=== PATIENT | female | born 1950 | race African-American/Black ===

== ENCOUNTER 2016-05-06 17:22 | Emergency (ER) | payer MEDICARE, MEDICAID ==
[~2016-05-06] VITALS: Ht 167.6 cm; Wt 70.0 kg
[~2016-05-06 17:22] MED LIST: ABAC1TAB3 PO; ATOR40TA PO; BUDE100T PO; CALCTAB70 PO; CLON.1 PO; ENAL10TA7 PO; HYDR-2768 PO; SERO300T PO; SIME1CHW10 CHEW
[2016-05-06 17:25] VITALS: BP 185/98; PULSE 88; RESP 16; TEMP 97.8; O2SAT 98
[2016-05-06 17:47] LABS: BLOOD, URINE NEG (NEG); COMMENT (UR) CULT NOT INDICATED; CULTURE IF INDICATED CULT NOT INDICATED; GLUCOSE,URINE NEG (NEG); KETONE, URINE TRACE mg/dL (NEG); NITRITE,URINE NEG (NEG); PH, URINE 5.5 (5.0-8.5); SQUAMOUS EPITHELIAL CELL URINE 2 /hpf (0-5); TRANSITIONAL EPI CELLS, URINE <1 /hpf; URINE COLOR YELLOW (YELLW/STRAW)
--- NOTE | 2016-05-06 18:04 | PD ---
HPI Chief Complaint: Abdominal Pain Time Seen by Provider: 18:04 Travel History International Travel<30 days: No Contact w/Intl Traveler<30days: No Traveled to known affect area: No History of Present Illness HPI 66-year-old Afro-[place] female coming in with 2 day history of worsening left lower quadrant pain. Patient states it is a sharp pain which she describes as a 9/10. She says is gotten progressively worse since yesterday. Patient denies fever, chills, nausea, vomiting, and has had normal bowel movements. Pain is worse with walking and sitting. Patient denies vaginal symptoms. Denies urinary symptoms. Patient has no history of diverticulitis in the past. Patient is allergic to tramadol. PFSH Past Medical History Hx Anticoagulant Therapy: No Asthma: Yes Autoimmune Disease: Yes (HIV) Blood Disorders: No Depression: Yes Heart Rhythm Problems: No Cancer: Yes Cardiovascular Problems: Yes (HTN) High Cholesterol: Yes Chemotherapy: No Chest Pain: No Congestive Heart Failure: No Cerebrovascular Accident: No Diabetes: Yes (type 2) Diminished Hearing: No Endocrine: No Gastrointestinal Disorders: Yes (gerd) Genitourinary: No Headaches: Yes Hiatal Hernia: No Hypertension: Yes Immune Disorder: Yes (HIV) Musculoskeletal: No Neurologic: Yes Psychiatric: Yes Reproductive: No Respiratory: No Immunizations Current: Yes Radiation Therapy: No Sickle Cell Disease: No Thyroid Disease: No Menopausal: Yes Tubal Ligation: Yes Past Surgical History Abdominal Surgery: No AICD: No Arteriovenous Shunt: No Cardiac Surgery: No Section: Yes Ear Surgery: No Endocrine Surgery: No Eye Surgery: No Genitourinary Surgery: No Gynecologic Surgery: Yes () Hysterectomy: Yes Joint Replacement: No Oral Surgery: No Pacemaker: No Thoracic Surgery: No Other Surgery: Yes Social History Alcohol Use: Yes (weekly) Tobacco Use: No Substance Use: No Allergies-Medications (Allergen,Severity, Reaction): Uncoded Allergies: geritol (Adverse Reaction, Severe, 03/24/15) pt states this vit supplement made her ill but cannot remember what "it did to her exactly" Reported Meds & Prescriptions Reported Meds & Active Scripts Active Flagyl (Metronidazole) 500 Mg Tab 500 Mg PO TID Levaquin (Levofloxacin) 500 Mg Tab 500 Mg PO DAILY Reported Enalapril (Enalapril Maleate) 20 Mg Tab 20 Mg PO DAILY Seroquel (Quetiapine Fumarate) 300 Mg Tab 300 Mg PO DAILY Clonidine (Clonidine HCl) 0.1 Mg Tab 0.1 Mg PO BID Bupropion HCl 100 Mg Tab 100 Mg PO HS Atorvastatin (Atorvastatin Calcium) 40 Mg Tab 40 Mg PO HS Review of Systems Except as stated in HPI: all other systems reviewed are Neg General / Constitutional: No: Fever, Chills Eyes: No: Visual changes HENT: No: Headaches Cardiovascular: No: Chest Pain or Discomfort Respiratory: No: Shortness of Breath Gastrointestinal: Positive: Abdominal Pain, No: Nausea, Vomiting, Diarrhea Genitourinary: No: Urgency, Frequency, Dysuria, Decreased Urinary Output Musculoskeletal: No: Pain Skin: No Rash Neurologic: No: Weakness Psychiatric: No: Depression Endocrine: No: Polydipsia Hematologic/Lymphatic: No: Easy Bruising Physical Exam Narrative GENERAL: Patient appears in moderate discomfort. SKIN: Warm and dry. Normal color. Normal turgor. No diaphoresis. HEAD: Atraumatic. Normocephalic. EYES: Pupils equal and round. No scleral icterus. No injection or drainage. ENT: No nasal bleeding or discharge. Mucous membranes pink and moist. Pharynx is normal. NECK: Trachea midline. No JVD. Neck is supple nontender. CARDIOVASCULAR: Regular rate and rhythm. No murmurs gallops or rubs. RESPIRATORY: No accessory muscle use. Clear to auscultation. Breath sounds equal bilaterally. GASTROINTESTINAL: Abdomen soft, patient has moderate point tenderness at the left lower quadrant with mild guarding and rebound, nondistended. Hepatic and splenic margins not palpable. No CVA tenderness. Patient has positive psoas sign on the left. MUSCULOSKELETAL: Extremities without clubbing, cyanosis, or edema. No obvious deformities. NEUROLOGICAL: Awake and alert. No obvious cranial nerve deficits. Motor grossly within normal limits. Five out of 5 muscle strength in the arms and legs. Normal speech. PSYCHIATRIC: Appropriate mood and affect; insight and judgment normal. Data Data Last Documented VS Vital Signs Date Time Temp Pulse Resp B/P Pulse Ox O2 Delivery O2 Flow Rate FiO2 05/06/16 19:09 74 20 167/97 95 05/06/16 18:17 Nasal Cannula 2 05/06/16 17:25 97.8 Orders Urinalysis - C+S If Indicated (05/06/16 17:32) Complete Blood Count With Diff (05/06/16 18:12) Comprehensive Metabolic Panel (05/06/16 18:12) Lipase (05/06/16 18:12) Lactic Acid (05/06/16 18:12) Prothrombin Time / Inr (Pt) (05/06/16 18:12) Act Partial Throm Time (Ptt) (05/06/16 18:12) Ct Abd/Pel W Iv Contrast(Rout) (05/06/16 18:12) Iv Access Insert/Monitor (05/06/16 18:12) Ecg Monitoring (05/06/16 18:12) Oximetry (05/06/16 18:12) NPO (05/06/16 18:12) Morphine Inj (Morphine Inj) (05/06/16 18:15) Ondansetron Inj (Zofran Inj) (05/06/16 18:15) Sodium Chloride 0.9% Flush (Ns Flush) (05/06/16 18:15) Iohexol 350 Inj (Omnipaque 350 Inj) (05/06/16 19:20) Sodium Chlor 0.9% 1000 Ml Inj (Ns 1000 M (05/06/16 20:15) Metronidazole 500 Mg Inj (Flagyl 500 Mg (05/06/16 20:15) Lactic Acid (05/06/16 20:06) Levofloxacin (Levaquin) (05/06/16 20:15) Ketorolac Inj (Toradol Inj) (05/06/16 20:30) Labs Laboratory Tests Test 05/06/16 05/06/16 05/06/16 17:30 18:18 20:20 Urine Color YELLOW Urine Turbidity CLEAR Urine pH 5.5 Urine Specific [place] 1.041 Urine Protein 30 mg/dL Urine Glucose (UA) NEG mg/dL Urine Ketones TRACE mg/dL Urine Occult Blood NEG Urine Nitrite NEG Urine Bilirubin NEG Urine Urobilinogen 2.0 MG/DL Urine Leukocyte Esterase SMALL Urine RBC LESS THAN 1 /hpf Urine WBC 1 /hpf Urine Squamous Epithelial 2 /hpf Cells Urine Transitional Epithelial <1 /hpf Cells Microscopic Urinalysis Comment CULT NOT INDICATED White Blood Count 10.7 TH/MM3 Red Blood Count 4.96 MIL/MM3 Hemoglobin 13.6 GM/DL Hematocrit 40.7 % Mean Corpuscular Volume 82.0 FL Mean Corpuscular Hemoglobin 27.4 PG Mean Corpuscular Hemoglobin 33.4 % Concent Red Cell Distribution Width 14.5 % Platelet Count 259 TH/MM3 Mean Platelet Volume 10.1 FL Neutrophils (%) (Auto) 56.6 % Lymphocytes (%) (Auto) 34.5 % Monocytes (%) (Auto) 5.1 % Eosinophils (%) (Auto) 3.1 % Basophils (%) (Auto) 0.7 % Neutrophils # (Auto) 6.0 TH/MM3 Lymphocytes # (Auto) 3.7 TH/MM3 Monocytes # (Auto) 0.5 TH/MM3 Eosinophils # (Auto) 0.3 TH/MM3 Basophils # (Auto) 0.1 TH/MM3 CBC Comment DIFF FINAL Differential Comment Prothrombin Time 10.4 SEC Prothromb Time International 0.9 RATIO Ratio Activated Partial 25.6 SEC Thromboplast Time Sodium Level 141 MEQ/L Potassium Level 3.4 MEQ/L Chloride Level 106 MEQ/L Carbon Dioxide Level 24.7 MEQ/L Anion Gap 10 MEQ/L Blood Urea Nitrogen 10 MG/DL Creatinine 1.03 MG/DL Estimat Glomerular Filtration 65 ML/MIN Rate Random Glucose 118 MG/DL Lactic Acid Level 2.4 mmol/L 2.0 mmol/L Calcium Level 9.1 MG/DL Total Bilirubin 0.6 MG/DL Aspartate Amino Transf 28 U/L (AST/SGOT) Alanine Aminotransferase 39 U/L (ALT/SGPT) Alkaline Phosphatase 179 U/L Total Protein 7.6 GM/DL Albumin 4.2 GM/DL Lipase 153 U/L MDM Medical Decision Making Medical Screen Exam Complete: Yes Emergency Medical Condition: Yes Differential Diagnosis Urinary tract infection. Renal stone. Diverticulitis. Colitis. Bowel obstruction. Abscess. Narrative Course Patient is medically stable at time of exam. Labs ordered including CBC, CMP, lactic acid. Urinalysis was performed in triage without signs of acute infection. IV access is obtained patient is given 4 mg IV morphine, [address] of the abdomen and pelvis is ordered with oral and IV contrast. CBC is unremarkable. CMP shows sodium 141. Potassium 3.4. Creatinine 1.03. BUN is normal at 10. Lactic acid is elevated at 2.4. Alkaline phosphatase is elevated at 179. Lipase is normal at 153. Urinalysis is unremarkable for infection. CT scan shows diverticulosis without obvious signs of diverticulitis or abscess. No masses appreciated. Per radiologist. Patient is discussed with Dr. Valencia who recommends treatment with the patient due to her clinical symptoms for presumed diverticulitis despite lack of CT evidence. Patient is given 500 mg Flagyl IV, as well as 500 mg Levaquin by mouth. Patient is given 30 mg Toradol IV for discomfort. Patient is given a 1 L normal saline bolus. Repeat lactic acid is ordered for 2100 hrs. Repeat Lactic Acid improved at 2.0. Patient felt stable to be discharged home. Patient will be continued on Levaquin 500 mg daily for 10 days. Patient also given Flagyl 500 mg 3 times a day 7 days. Patient can take [id number] Tylenol or ibuprofen as needed for pain. Patient is given information regarding diverticulitis. Patient should follow up with her primary care physician to ensure resolution. Patient should return the emergency Department with worsening symptoms if necessary. Diagnosis Primary Impression: Diverticulitis large intestine w/o perforation or abscess w/o bleeding Referrals: Primary Care Physician Patient Instructions: Diverticulitis (ED), Diverticulitis Diet (ED), General Instructions Additional Instructions: Patient felt stable to be discharged home. Patient will be continued on Levaquin 500 mg daily for 10 days. Patient also given Flagyl 500 mg 3 times a day 7 days. Patient can take [id number] Tylenol or ibuprofen as needed for pain. Patient is given information regarding diverticulitis. Patient should follow up with her primary care physician to ensure resolution. Patient should return the emergency Department with worsening symptoms if necessary. Med/Other Pt SpecificInfo: Prescription(s) given Scripts Metronidazole (Flagyl)500 Mg [id number] Mg PO TID #21 TAB Ref 0 Prov:Arminda Valencia MD 05/06/16 Levofloxacin (Levaquin)500 Mg [id number] Mg PO DAILY #10 TAB Prov:Arminda Valencia MD 05/06/16 Disposition: DISCHARGE HOME Condition: Stable Bryan Snyder May 06, 2016 18:04
[2016-05-06] MEDS ORDERED: CLON0.1T PO (18:09)
[2016-05-06] MEDS ORDERED: SERO300T PO (18:09)
[2016-05-06] MEDS ORDERED: ATOR40TA16 PO (18:09)
[2016-05-06] MEDS ORDERED: ENAL20TA PO (18:09)
[2016-05-06] MEDS ORDERED: BUPR100T4 PO (18:09)
[2016-05-06] MEDS ORDERED: SODIUM CHLORIDE 0.9% FLUSH 5 ML FLUSH IVF PRN (18:15)
[2016-05-06] MEDS ORDERED: MORPHINE SULFATE 4 MG/ML INJ IV PUSH ONE (18:15)
[2016-05-06] MEDS ORDERED: ONDANSETRON HCL 4 MG/2 ML VIAL IVP ONE (18:15)
[2016-05-06 18:16] VITALS: O2SAT 97
[2016-05-06 18:17] VITALS: BP 160/101; PULSE 77; RESP 18; O2SAT 97
[2016-05-06 18:39] LABS: BASOPHIL # 0.1 TH/MM3 (0-0.2); BASOPHIL % 0.7 % (0.0-2.0); EOSINOPHIL # 0.3 TH/MM3 (0-0.4); EOSINOPHIL % 3.1 % (0.0-4.0); HEMATOCRIT 40.7 % (35.0-46.0); HEMO FLAGS DIFF FINAL; LYMPH % 34.5 % (9.0-44.0); LYMPHOCYTE # 3.7 TH/MM3 (1.0-4.8); MEAN CORPUSCULAR HEMOGLOBIN 27.4 PG (27.0-34.0); MEAN CORPUSCULAR HGB CONC 33.4 % (32.0-36.0); MONO % 5.1 % (0.0-8.0); NEUT % 56.6 % (16.0-70.0); PLATELET COUNT 259 TH/MM3 (150-450); RED BLOOD COUNT 4.96 MIL/MM3 (4.00-5.30); RED CELL DISTRIBUTION WIDTH 14.5 % (11.6-17.2); WHITE BLOOD COUNT 10.7 TH/MM3 (4.0-11.0)
[2016-05-06 18:51] LABS: ANION GAP 10 MEQ/L (5-15); AST (GOT) 28 U/L (15-37); BICARBONATE 24.7 MEQ/L (21.0-32.0); BLOOD UREA NITROGEN 10 MG/DL (7-18); CHLORIDE 106 MEQ/L (98-107); GLOMERULAR FILTRATION RATE 65 ML/MIN (>89); POTASSIUM 3.4 MEQ/L (3.5-5.1); SODIUM (NA) 141 MEQ/L (136-145)
[2016-05-06 18:54] LABS: ALKALINE PHOSPHATASE 179 U/L (45-117); ALT (GPT) 39 U/L (10-53); TOTAL BILIRUBIN ADULT 0.6 MG/DL (0.2-1.0)
[2016-05-06 18:57] LABS: APTT (PATIENT) 25.6 SEC (24.3-30.1); INTERNATIONAL NORMALIZED RATIO 0.9 RATIO; PROTHROMBIN TIME - PATIENT 10.4 SEC (9.8-11.6)
--- NOTE | 2016-05-06 18:57 | PD ---
Data Data Last Documented VS Vital Signs Date Time Temp Pulse Resp B/P Pulse Ox O2 Delivery O2 Flow Rate FiO2 05/06/16 18:17 77 18 160/101 97 Nasal Cannula 2 05/06/16 17:25 97.8 Orders Urinalysis - C+S If Indicated (05/06/16 17:32) Complete Blood Count With Diff (05/06/16 18:12) Comprehensive Metabolic Panel (05/06/16 18:12) Lipase (05/06/16 18:12) Lactic Acid (05/06/16 18:12) Prothrombin Time / Inr (Pt) (05/06/16 18:12) Act Partial Throm Time (Ptt) (05/06/16 18:12) Ct Abd/Pel W Iv Contrast(Rout) (05/06/16 18:12) Iv Access Insert/Monitor (05/06/16 18:12) Ecg Monitoring (05/06/16 18:12) Oximetry (05/06/16 18:12) NPO (05/06/16 18:12) Morphine Inj (Morphine Inj) (05/06/16 18:15) Ondansetron Inj (Zofran Inj) (05/06/16 18:15) Sodium Chloride 0.9% Flush (Ns Flush) (05/06/16 18:15) Labs Laboratory Tests Test 05/06/16 05/06/16 17:30 18:18 Urine Color YELLOW Urine Turbidity CLEAR Urine pH 5.[address] [place] 1.041 Urine Protein 30 mg/dL Urine Glucose (UA) NEG mg/dL Urine Ketones TRACE mg/dL Urine Occult Blood NEG Urine Nitrite NEG Urine Bilirubin NEG Urine Urobilinogen 2.0 MG/DL Urine Leukocyte Esterase SMALL Urine RBC LESS THAN 1 /hpf Urine WBC 1 /hpf Urine Squamous Epithelial 2 /hpf Cells Urine Transitional Epithelial <1 /hpf Cells Microscopic Urinalysis Comment CULT NOT INDICATED White Blood Count 10.7 TH/MM3 Red Blood Count 4.96 MIL/MM3 Hemoglobin 13.6 GM/DL Hematocrit 40.7 % Mean Corpuscular Volume 82.0 FL Mean Corpuscular Hemoglobin 27.4 PG Mean Corpuscular Hemoglobin 33.4 % Concent Red Cell Distribution Width 14.5 % Platelet Count 259 TH/MM3 Mean Platelet Volume 10.1 FL Neutrophils (%) (Auto) 56.6 % Lymphocytes (%) (Auto) 34.5 % Monocytes (%) (Auto) 5.1 % Eosinophils (%) (Auto) 3.1 % Basophils (%) (Auto) 0.7 % Neutrophils # (Auto) 6.0 TH/MM3 Lymphocytes # (Auto) 3.7 TH/MM3 Monocytes # (Auto) 0.5 TH/MM3 Eosinophils # (Auto) 0.3 TH/MM3 Basophils # (Auto) 0.1 TH/MM3 CBC Comment DIFF FINAL Differential Comment Sodium Level 141 MEQ/L Potassium Level 3.4 MEQ/L Chloride Level 106 MEQ/L Carbon Dioxide Level 24.7 MEQ/L Anion Gap 10 MEQ/L Blood Urea Nitrogen 10 MG/DL Creatinine 1.03 MG/DL Estimat Glomerular Filtration 65 ML/MIN Rate Random Glucose 118 MG/DL Lactic Acid Level 2.4 mmol/L Calcium Level 9.1 MG/DL Total Bilirubin 0.6 MG/DL Aspartate Amino Transf 28 U/L (AST/SGOT) Alanine Aminotransferase 39 U/L (ALT/SGPT) Alkaline Phosphatase 179 U/L Total Protein 7.6 GM/DL Albumin 4.2 GM/DL Lipase 153 U/L MDM Supervised Visit with WADE: Yes Narrative Course The history, exam, and medical decision-making in the associated midlevel provider note were completed with my assistance. I reviewed and agree with the findings presented. I attest that I had a [id number] encounter with the patient on the same day, and personally performed and documented my assessment and findings in the medical record. *My assessment and Findings: This is a 66-year-old female who presents to the emergency department with left lower quadrant abdominal pain. She is tender to palpation in the left lower quadrant and pelvis. Differential diagnosis includes diverticulitis versus pelvic mass. Labs are obtained and CT will be obtained. Disposition will be made according to his CT findings. Linda Hicks MD May 06, 2016 18:57
[2016-05-06 19:09] VITALS: BP 167/97; PULSE 74; RESP 20; O2SAT 95
[2016-05-06] MEDS ORDERED: IOHEXOL 350 MG/ML 10 ML VIAL (for RAD DIAG) IV ONE (19:20)
--- NOTE | 2016-05-06 19:40 | RADRPT ---
EXAM DATE/TIME: 05/06/2016 19:15 [facility] COMPARISON: CT ABDOMEN & PELVIS W/O CONTRAST, May 30, 2013, 4:31. INDICATIONS : Lower left side abdomen pain. IV CONTRAST: 100 cc Omnipaque 350 (iohexol) IV ORAL CONTRAST: No oral contrast ingested. RADIATION DOSE: 9.70 CTDIvol (mGy) MEDICAL HISTORY : Gastroesophageal reflux disease. HIV. SURGICAL HISTORY : section. Hysterectomy. ENCOUNTER: Initial ACUITY: 1 day PAIN SCALE: 5/10 LOCATION: Left lower quadrant abdomen. TECHNIQUE: Volumetric scanning of the abdomen and pelvis was performed. Using automated exposure control and ad justment of the mA and/or kV according to patient size, radiation dose was kept as low as reasonably achievable to obtain optimal diagnostic quality images. FINDINGS: LOWER LUNGS: The visualized lower lungs are clear. LIVER: Homogeneous, but decreased density without lesion. There is no dilation of the biliary tree. No lon cified gallstones. SPLEEN: Normal size without lesion. PANCREAS: Some prominence of the pancreatic duct (5.5 mm) of uncertain etiology. No obvious mass lesion or calc ifications of chronic pancreatitis. KIDNEYS: Normal in size and shape. There is no mass, stone or hydronephrosis. ADRENAL GLANDS: Within normal limits. VASCULAR: There is no aortic aneurysm. BOWEL/MESENTERY: The stomach, small bowel, and colon demonstrate no acute abnormality. There is no free intraperitone al air or fluid. A few scattered diverticula are seen in the descending and sigmoid portions of the c olon ABDOMINAL WALL: Within normal limits. RETROPERITONEUM: There is no lymphadenopathy. BLADDER: No wall thickening or mass. REPRODUCTIVE: Within normal limits. INGUINAL: There is no lymphadenopathy or hernia. MUSCULOSKELETAL: Within normal limits for patient age. CONCLUSION: 1. Mild dilation of the pancreatic duct of uncertain etiology. No pancreatic mass lesion or findings of chronic pancreatitis. 2. Mild diverticular disease of the descending and sigmoid colon without diverticulitis. 3. Diffuse hepatic fatty infiltration. Bart Carroll MD on May 06, 2016 at 19:32 Board Certified Radiologist. This report was verified electronically.
[2016-05-06] MEDS ORDERED: SODIUM CHLOR 0.9% 1000 ML INJ 1,000 ML IV ONE (20:15)
[2016-05-06] MEDS ORDERED: metroNIDAZOLE 500 MG INJ 100 ML IV ONE (20:15)
[2016-05-06] MEDS ORDERED: LEVOFLOXACIN 750 MG TAB PO ONE (20:15)
[2016-05-06] MEDS ORDERED: KETOROLAC TROMETHAMINE 30 MG/ML (IVP) VIAL IV PUSH ONE (20:30)
--- NOTE | 2016-05-06 20:34 | PD ---
Physical Exam Narrative General: The patient is a well-developed well-nourished female in no acute distress. Head and Neck exam: Head is normocephalic atraumatic. Eyes: Pupils are equal round and reactive to light. Nose: Midline septum with pink mucous membranes Mouth: Dentition unremarkable. Moist mucus membranes. Posterior oropharynx is not erythematous. No tonsillar hypertrophy. Uvula midline. Airway patent. Neck: No palpable lymphadenopathy. No nuchal rigidity. Cardiovascular: Regular rate and rhythm without murmurs, gallops, or rubs. Lungs: Clear to auscultation bilaterally. No wheezes, rhonchi, or rales. Abdomen: Soft, with tenderness on palpation in the left lower quadrant of the abdomen, no tenderness on McBurney's point. No guarding, rebound, or rigidity. Normal bowel sounds are audible. Extremities: No clubbing, cyanosis, or edema. 2+ pulses in all 4 extremities. No calf tenderness on palpation. Back: No costovertebral angle tenderness to palpation. Neurologic Exam: Grossly nonfocal. Skin Exam: No rash noted. Intact skin that is warm and dry. Data Data Last Documented VS Vital Signs Date Time Temp Pulse Resp B/P Pulse Ox O2 Delivery O2 Flow Rate FiO2 05/06/16 19:09 74 20 167/97 95 05/06/16 18:17 Nasal Cannula 2 05/06/16 17:25 97.8 Orders Urinalysis - C+S If Indicated (05/06/16 17:32) Complete Blood Count With Diff (05/06/16 18:12) Comprehensive Metabolic Panel (05/06/16 18:12) Lipase (05/06/16 18:12) Lactic Acid (05/06/16 18:12) Prothrombin Time / Inr (Pt) (05/06/16 18:12) Act Partial Throm Time (Ptt) (05/06/16 18:12) Ct Abd/Pel W Iv Contrast(Rout) (05/06/16 18:12) Iv Access Insert/Monitor (05/06/16 18:12) Ecg Monitoring (05/06/16 18:12) Oximetry (05/06/16 18:12) NPO (05/06/16 18:12) Morphine Inj (Morphine Inj) (05/06/16 18:15) Ondansetron Inj (Zofran Inj) (05/06/16 18:15) Sodium Chloride 0.9% Flush (Ns Flush) (05/06/16 18:15) Iohexol 350 Inj (Omnipaque 350 Inj) (05/06/16 19:20) Sodium Chlor 0.9% 1000 Ml Inj (Ns 1000 M (05/06/16 20:15) Metronidazole 500 Mg Inj (Flagyl 500 Mg (05/06/16 20:15) Lactic Acid (05/06/16 20:06) Levofloxacin (Levaquin) (05/06/16 20:15) Ketorolac Inj (Toradol Inj) (05/06/16 20:30) Labs Laboratory Tests Test 05/06/16 05/06/16 05/06/16 17:30 18:18 20:20 Urine Color YELLOW Urine Turbidity CLEAR Urine pH 5.5 Urine Specific [place] 1.041 Urine Protein 30 mg/dL Urine Glucose (UA) NEG mg/dL Urine Ketones TRACE mg/dL Urine Occult Blood NEG Urine Nitrite NEG Urine Bilirubin NEG Urine Urobilinogen 2.0 MG/DL Urine Leukocyte Esterase SMALL Urine RBC LESS THAN 1 /hpf Urine WBC 1 /hpf Urine Squamous Epithelial 2 /hpf Cells Urine Transitional Epithelial <1 /hpf Cells Microscopic Urinalysis Comment CULT NOT INDICATED White Blood Count 10.7 TH/MM3 Red Blood Count 4.96 MIL/MM3 Hemoglobin 13.6 GM/DL Hematocrit 40.7 % Mean Corpuscular Volume 82.0 FL Mean Corpuscular Hemoglobin 27.4 PG Mean Corpuscular Hemoglobin 33.4 % Concent Red Cell Distribution Width 14.5 % Platelet Count 259 TH/MM3 Mean Platelet Volume 10.1 FL Neutrophils (%) (Auto) 56.6 % Lymphocytes (%) (Auto) 34.5 % Monocytes (%) (Auto) 5.1 % Eosinophils (%) (Auto) 3.1 % Basophils (%) (Auto) 0.7 % Neutrophils # (Auto) 6.0 TH/MM3 Lymphocytes # (Auto) 3.7 TH/MM3 Monocytes # (Auto) 0.5 TH/MM3 Eosinophils # (Auto) 0.3 TH/MM3 Basophils # (Auto) 0.1 TH/MM3 CBC Comment DIFF FINAL Differential Comment Prothrombin Time 10.4 SEC Prothromb Time International 0.9 RATIO Ratio Activated Partial 25.6 SEC Thromboplast Time Sodium Level 141 MEQ/L Potassium Level 3.4 MEQ/L Chloride Level 106 MEQ/L Carbon Dioxide Level 24.7 MEQ/L Anion Gap 10 MEQ/L Blood Urea Nitrogen 10 MG/DL Creatinine 1.03 MG/DL Estimat Glomerular Filtration 65 ML/MIN Rate Random Glucose 118 MG/DL Lactic Acid Level 2.4 mmol/L 2.0 mmol/L Calcium Level 9.1 MG/DL Total Bilirubin 0.6 MG/DL Aspartate Amino Transf 28 U/L (AST/SGOT) Alanine Aminotransferase 39 U/L (ALT/SGPT) Alkaline Phosphatase 179 U/L Total Protein 7.6 GM/DL Albumin 4.2 GM/DL Lipase 153 U/L [facility] Medical Record Reviewed: Yes Supervised Visit with WADE: Yes Interpretation(s) Last Impressions Abdomen/Pelvis CT 05/06/161811 Signed Impressions: Service Date/Time: Friday, May 06, 2016 19:15 - CONCLUSION: 1. Mild dilation of the pancreatic duct of uncertain etiology. No pancreatic mass lesion or findings of chronic pancreatitis. 2. Mild diverticular disease of the descending and sigmoid colon without diverticulitis. 3. Diffuse hepatic fatty infiltration. Bart Carroll MD Narrative Course I, Dr. Valencia, have reviewed the advance practice practitioner's documentation and am in agreement, met with the patient face to face, made the diagnosis, and the medical decision making was done by me. The patient was initially evaluated by Bryan and Dr. Hicks. Please see his complete history and physical. *My assessment and Findings: The patient is a 66-year-old female who presents to [facility] emergency Department with a history of left lower quadrant abdominal pain. The patient's laboratory studies are remarkable for a white count of 10.7, hemoglobin 13.6, platelets 259 with a normal differential. CMP is remarkable for a potassium of 3.4, creatinine 1.03, glucose 118, alkaline phosphatase 179, lipase 153. Lactic acid is 2.4. PT PTT within normal limits. Urinalysis shows concentrated urine trace ketones small leukocyte esterase culture not indicated. Wbc's are only 1 with 2 squamous epithelial cells. The patient's laboratory studies are suspicious for mild dehydration which could the patient's slight elevation of her lactic acid. The patient will be given IV fluids and her lactic acid reassessed. CT scan of the abdomen and pelvis shows a mild dilatation of the pancreatic duct of uncertain etiology, no pancreatic mass lesion or findings of chronic pancreatitis, mild diverticular disease of the descending and sigmoid colon without obvious diverticulitis, diffuse hepatic fatty infiltration. Given the patient's findings of acute left lower quadrant abdominal pain on palpation. The patient's symptoms are suspicious for a mild case of diverticulitis. The patient will be given antibiotic coverage for diverticulitis to include Levaquin and Flagyl. The patient's repeat lactate is 2. The patient reports feeling improved. The patient was instructed regarding the importance of following up with her primary care physician. She reports that she has an appointment scheduled on Saturday. The patient will be discharged home with antibiotic. The patient is resting comfortably and feels better, is alert and in no distress. The patients results and examination findings were discussed with the patient. The repeat examination is unremarkable and benign. The history, exam, diagnostic testing, and current condition do not suggest any significant pathology to warrant further testing, continued ED treatment, admission, or surgical evaluation at this point. The vital signs have been stable. The patient does not have uncontrollable pain, intractable vomiting, or other significant symptoms. The patient's condition is stable and appropriate for discharge. The patient will pursue further outpatient evaluation with a primary care physician or other designated or consulting physician as indicated in the discharge instructions. The patient expressed understanding and was agreeable with this plan. Scripts Metronidazole (Flagyl)500 Mg [id number] Mg PO TID #21 TAB Ref 0 Prov:Arminda Valencia MD 05/06/16 Levofloxacin (Levaquin)500 Mg [id number] Mg PO DAILY #10 TAB Prov:Arminda Valencia MD 05/06/16 Arminda Valencia MD May 06, 2016 20:34
[2016-05-06] MEDS ORDERED: METR-1 PO (20:55)
[2016-05-06] MEDS ORDERED: LEVA500T PO (20:55)
[2016-05-06] MEDS ORDERED: ONDANSETRON HCL 4 MG/2 ML VIAL IV ONE (21:15)
[2016-05-06] MEDS ORDERED: ONDANSETRON HCL 4 MG/2 ML VIAL IV PUSH ONE (22:00)
[2016-05-06] MEDS ORDERED: ZOFR4TAB PO (22:01)
[2016-05-06 22:49] VITALS: BP 168/96
== END 2016-05-06 22:53 | disposition home or self-care (01) ==
LOC: NEPE 17:22
DX: K57.32 Diverticulitis of large intestine without perforation or abscess without bleeding (principal); I10 Essential (primary) hypertension; J45.909 Unspecified asthma, uncomplicated; E11.9 Type 2 diabetes mellitus without complications; K21.9 Gastro-esophageal reflux disease without esophagitis
CPT/HCPCS: 74177; 80053; 81001; 83605; 83690; 85025; 85610; 85730; 96374; 96375; 96376; 99284; J1885; J2270; J2405; J7030; Q9967

== ENCOUNTER 2016-07-09 03:25 | Observation (INO) | payer MEDICARE, MEDICAID ==
[~2016-07-09] VITALS: Ht 167.6 cm; Wt 68.0 kg
[2016-07-09] VITALS (7 sets, daily range): BP systolic 111–175; BP diastolic 74–97; PULSE 68–88; RESP 14–48; TEMP 97.5–98.7; O2SAT 97–100
[~2016-07-09 03:25] MED LIST changes: -ABAC1TAB3 PO; -ATOR40TA PO; +ATOR40TA16 PO; -BUDE100T PO; +BUPR100T4 PO; -CALCTAB70 PO; -CLON.1 PO; +CLON0.1T PO; -ENAL10TA7 PO; +ENAL20TA PO; -HYDR-2768 PO; +LEVA500T PO; +METR-1 PO; -SIME1CHW10 CHEW; +ZOFR4TAB PO
[2016-07-09] MEDS ORDERED: ASPIRIN 81 MG CHEW TAB PO ONE (04:15)
[2016-07-09] MEDS ORDERED: SODIUM CHLORIDE 0.9% FLUSH 10 ML FLUSH IVF PRN (04:15)
[2016-07-09] MEDS: NITROGLYCERIN 0.4 MG SL 25 TABS/BTL SL SCH ×3 (04:15→04:38)
[2016-07-09] MEDS ORDERED: NITROGLYCERIN 2% OINT 1 GM PACKET TOP ONE (04:15)
[2016-07-09 04:19] LABS: AUTOMATED NEUTROPHIL # 2.7 TH/MM3 (1.8-7.7); BASOPHIL % 0.3 % (0.0-2.0); EOSINOPHIL # 0.3 TH/MM3 (0-0.4); EOSINOPHIL % 3.6 % (0.0-4.0); HEMATOCRIT 36.4 % (35.0-46.0); HEMO FLAGS DIFF FINAL; LYMPH % 51.8 % (9.0-44.0); LYMPHOCYTE # 3.7 TH/MM3 (1.0-4.8); MEAN CELL VOLUME 81.3 FL (80.0-100.0); MEAN CORPUSCULAR HEMOGLOBIN 27.9 PG (27.0-34.0); MEAN CORPUSCULAR HGB CONC 34.3 % (32.0-36.0); MONO % 6.3 % (0.0-8.0); PLATELET COUNT 243 TH/MM3 (150-450); RED BLOOD COUNT 4.47 MIL/MM3 (4.00-5.30); RED CELL DISTRIBUTION WIDTH 14.7 % (11.6-17.2); WHITE BLOOD COUNT 7.2 TH/MM3 (4.0-11.0)
[2016-07-09 04:34] LABS: APTT (PATIENT) 24.6 SEC (24.3-30.1); INTERNATIONAL NORMALIZED RATIO 0.9 RATIO; PROTHROMBIN TIME - PATIENT 10.3 SEC (9.8-11.6)
[2016-07-09 04:40] LABS: ALT (GPT) 41 U/L (10-53); ANION GAP 9 MEQ/L (5-15); AST (GOT) 30 U/L (15-37); BICARBONATE 28.8 MEQ/L (21.0-32.0); BLOOD UREA NITROGEN 9 MG/DL (7-18); CHLORIDE 104 MEQ/L (98-107); GLOMERULAR FILTRATION RATE 95 ML/MIN (>89); MAGNESIUM 1.7 MG/DL (1.5-2.5); POTASSIUM 3.3 MEQ/L (3.5-5.1); SODIUM (NA) 142 MEQ/L (136-145)
[2016-07-09 04:44] LABS: ALKALINE PHOSPHATASE 130 U/L (45-117); CREATINE KINASE 233 U/L (26-192); TOTAL BILIRUBIN ADULT 0.3 MG/DL (0.2-1.0)
[2016-07-09 04:57] LABS: CKMB 2.4 NG/ML (0.5-3.6)
--- NOTE | 2016-07-09 05:04 | RADRPT ---
EXAM DATE/TIME: 07/09/2016 04:30 [facility] COMPARISON: CHEST SINGLE AP, May 10, 2015, 11:15. INDICATIONS : Chest pain. MEDICAL HISTORY : None. SURGICAL HISTORY : None. ENCOUNTER: Initial ACUITY: 1 day PAIN SCORE: 7/10 LOCATION: Bilateral chest FINDINGS: A single view of the chest demonstrates the lungs to be symmetrically aerated without evidence of mas s, infiltrate or effusion. The cardiomediastinal contours are unremarkable. Osseous structures are intact. CONCLUSION: No acute disease. Conor Todd MD on July 09, 2016 at 5:03 Board Certified Radiologist. This report was verified electronically.
--- NOTE | 2016-07-09 05:44 | PD ---
HPI Chief Complaint: Chest Pain Time Seen by Provider: 04:03 Travel History International Travel<30 days: No Contact w/Intl Traveler<30days: No Traveled to known affect area: No History of Present Illness HPI The patient is a 66 year old female who presents to the [facility] emergency department with a history of chest pain that she reports began just prior to going to bed last night. She reports that at first it felt like a gassy sensation, therefore she took Madhavi-[place]. She reports the pain has been constant and a pins and needle sensation under her bilateral breasts. The patient denies ever having a pain like this previously. She denies any prior history of DVT, PE, or myocardial infarction. She does not recall ever having a stress test done previously. She denies having any radiation of pain into her arms or jaw. She denies having any shortness of breath. She denies having any acid reflux symptoms. She denies having any nausea or vomiting. The patient has a past medical history that is significant for hypertension and hyperlipidemia. The patient also has a history of HIV, however she cannot recall when she was diagnosed. She reports that she is unsure what her last CD4 count or viral load was. She reports that she is taking her retroviral medications daily. The patient denies any recent fevers, cough, congestion, neck pain, abdominal pain, vomiting, diarrhea, urinary symptoms, or neurologic symptoms. FOR[facility]LY [facility] Past Medical History Narrative Medical The patient's past medical history is significant for cervical dysplasia, chronic immunosuppression related to HIV, history of hypertension, hyperlipidemia Hx Anticoagulant Therapy: No Asthma: Yes Autoimmune Disease: Yes (HIV) Blood Disorders: No Depression: Yes Heart Rhythm Problems: No Cancer: Yes Cardiovascular Problems: Yes (HTN) High Cholesterol: Yes Chemotherapy: No Chest Pain: No Congestive Heart Failure: No Cerebrovascular Accident: No Diabetes: Yes (type 2) Patient Takes Glucophage: No Diminished Hearing: No Endocrine: No Gastrointestinal Disorders: Yes (gerd) Genitourinary: No Headaches: Yes Hiatal Hernia: No Heparin Induced Thrombocytopen: No Hypertension: Yes Immune Disorder: Yes (HIV) Musculoskeletal: No Neurologic: Yes Psychiatric: Yes Reproductive: No Respiratory: No Immunizations Current: Yes Radiation Therapy: No Sickle Cell Disease: No Thyroid Disease: No Menopausal: Yes Tubal Ligation: Yes Past Surgical History Narrative Surgical The patient's past surgical history significant for a , colonoscopy, hysterectomy. Abdominal Surgery: No AICD: No Arteriovenous Shunt: No Cardiac Surgery: No Section: Yes Ear Surgery: No Endocrine Surgery: No Eye Surgery: No Genitourinary Surgery: No Gynecologic Surgery: Yes () Hysterectomy: Yes Joint Replacement: No Oral Surgery: No Pacemaker: No Thoracic Surgery: No Other Surgery: Yes Social History Alcohol Use: Yes Tobacco Use: No Substance Use: No Allergies-Medications (Allergen,Severity, Reaction): Uncoded Allergies: geritol (Adverse Reaction, Severe, 03/24/15) pt states this vit supplement made her ill but cannot remember what "it did to her exactly" Reported Meds & Prescriptions Reported Meds & Active Scripts Active Zofran (Ondansetron HCl) 4 Mg Tab 4 Mg PO Q6HR PRN Flagyl (Metronidazole) 500 Mg Tab 500 Mg PO TID Levaquin (Levofloxacin) 500 Mg Tab 500 Mg PO DAILY Reported Enalapril (Enalapril Maleate) 20 Mg Tab 20 Mg PO DAILY Seroquel (Quetiapine Fumarate) 300 Mg Tab 300 Mg PO DAILY Clonidine (Clonidine HCl) 0.1 Mg Tab 0.1 Mg PO BID Bupropion HCl 100 Mg Tab 100 Mg PO HS Atorvastatin (Atorvastatin Calcium) 40 Mg Tab 40 Mg PO HS Review of Systems Except as stated in HPI: all other systems reviewed are Neg General / Constitutional: No: Fever Eyes: No: Visual changes HENT: No: Headaches Cardiovascular: Positive: Chest Pain or Discomfort, No: Dyspnea on exertion Respiratory: Positive: Cough (cough reportedly since arriving in the emergency department), No: Shortness of Breath Gastrointestinal: No: Nausea, Vomiting, Abdominal Pain Genitourinary: No: Dysuria Musculoskeletal: No: Pain Skin: No Rash Neurologic: No: Weakness Psychiatric: No: Depression Endocrine: No: Polydipsia Hematologic/Lymphatic: No: Easy Bruising Physical Exam Narrative General: The patient is a well-developed well-nourished female in no acute distress. Head and Neck exam: Head is normocephalic atraumatic. Eyes: EOMI, pupils are equal round and reactive to light. Nose: Midline septum with pink mucous membranes Mouth: Dentition unremarkable. Moist mucus membranes. Posterior oropharynx is not erythematous. No tonsillar hypertrophy. Uvula midline. Airway patent. Neck: No palpable lymphadenopathy. No nuchal rigidity. No thyromegaly. Cardiovascular: Regular rate and rhythm without murmurs, gallops, or rubs. No pulse deficit to the extremities and simultaneous auscultation and palpation of her radial artery. Lungs: Clear to auscultation bilaterally. No wheezes, rhonchi, or rales. Abdomen: Soft, without tenderness to palpation in all 4 quadrants of the abdomen. No guarding, rebound, or rigidity. Normal bowel sounds are audible. No tenderness on palpation of McBurney's point. Negative Thayer's sign. Extremities: No clubbing, cyanosis, or edema. 2+ pulses in all 4 extremities. No calf tenderness on palpation. Back: No spinous process tenderness to palpation. No costovertebral angle tenderness to palpation. Neurologic Exam: Grossly nonfocal. Skin Exam: No rash noted. Intact skin that is warm and dry. Data Data Last Documented VS Vital Signs Date Time Temp Pulse Resp B/P Pulse Ox O2 Delivery O2 Flow Rate FiO2 07/09/16 04:15 18 98 Nasal Cannula 2 07/09/16 03:58 68 134/89 07/09/16 03:27 97.7 Orders Electrocardiogram (07/09/16 03:33) B-Type Natriuretic Peptide (07/09/16 04:03) Ckmb (Isoenzyme) Profile (07/09/16 04:03) Complete Blood Count With Diff (07/09/16 04:03) Comprehensive Metabolic Panel (07/09/16 04:03) Magnesium (Mg) (07/09/16 04:03) Prothrombin Time / Inr (Pt) (07/09/16 04:03) Act Partial Throm Time (Ptt) (07/09/16 04:03) Troponin I (07/09/16 04:03) Lipase (07/09/16 04:03) Chest, Single Ap (07/09/16 04:03) Ecg Monitoring (07/09/16 04:03) Bilateral Bp Monitoring (07/09/16 04:03) Iv Access Insert/Monitor (07/09/16 04:03) Oximetry (07/09/16 04:03) Oxygen Administration (07/09/16 04:03) Aspirin Chew (Aspirin Chew) (07/09/16 04:15) Nitroglycerin 2% Oint (Nitroglycerin 2% (07/09/16 04:15) Sodium Chloride 0.9% Flush (Ns Flush) (07/09/16 04:15) Nitroglycerin Sl (Nitrostat Sl) (07/09/16 04:15) CKMB (07/09/16 04:10) CKMB% (07/09/16 04:10) Potassium Chloride (Kcl) (07/09/16 05:45) Pantoprazole Inj (Protonix Inj) (07/09/16 05:45) Labs Laboratory Tests Test 07/09/16 04:10 White Blood Count 7.2 TH/MM3 Red Blood Count 4.47 MIL/MM3 Hemoglobin 12.5 GM/DL Hematocrit 36.4 % Mean Corpuscular Volume 81.3 FL Mean Corpuscular Hemoglobin 27.9 PG Mean Corpuscular Hemoglobin 34.3 % Concent Red Cell Distribution Width 14.7 % Platelet Count 243 TH/MM3 Mean Platelet Volume 9.6 FL Neutrophils (%) (Auto) 38.0 % Lymphocytes (%) (Auto) 51.8 % Monocytes (%) (Auto) 6.3 % Eosinophils (%) (Auto) 3.6 % Basophils (%) (Auto) 0.3 % Neutrophils # (Auto) 2.7 TH/MM3 Lymphocytes # (Auto) 3.7 TH/MM3 Monocytes # (Auto) 0.5 TH/MM3 Eosinophils # (Auto) 0.3 TH/MM3 Basophils # (Auto) 0.0 TH/MM3 CBC Comment DIFF FINAL Differential Comment Prothrombin Time 10.3 SEC Prothromb Time International 0.9 RATIO Ratio Activated Partial 24.6 SEC Thromboplast Time Sodium Level 142 MEQ/L Potassium Level 3.3 MEQ/L Chloride Level 104 MEQ/L Carbon Dioxide Level 28.8 MEQ/L Anion Gap 9 MEQ/L Blood Urea Nitrogen 9 MG/DL Creatinine 0.74 MG/DL Estimat Glomerular Filtration 95 ML/MIN Rate Random Glucose 150 MG/DL Calcium Level 9.0 MG/DL Magnesium Level 1.7 MG/DL Total Bilirubin 0.3 MG/DL Aspartate Amino Transf 30 U/L (AST/SGOT) Alanine Aminotransferase 41 U/L (ALT/SGPT) Alkaline Phosphatase 130 U/L Total Creatine Kinase 233 U/L Creatine Kinase MB 2.4 NG/ML Creatine Kinase MB % 1.0 % Troponin I LESS THAN 0.02 NG/ML B-Type Natriuretic Peptide 10 PG/ML Total Protein 6.7 GM/DL Albumin 3.6 GM/DL Lipase 197 U/L MDM Medical Decision Making Medical Screen Exam Complete: Yes Emergency Medical Condition: Yes Medical Record Reviewed: Yes Differential Diagnosis Acute coronary syndrome, versus acid reflux, versus pneumonia Narrative Course During the course of the patients emergency department visit, the patients history, examination, and differential diagnosis were reviewed with the patient. The patient had IV access obtained and blood work sent for analysis. The patient was placed on a crime scene investigator with oximetry and blood pressure monitoring. An EKG was done on arrival. The patient's EKG shows a sinus rhythm heart rate of 76, no acute ST segment elevation or depression. T waves are inverted in V1. The patient was provided aspirin 162 mg by mouth 1. The patient was given sublingual nitroglycerin every 5 minutes 3 when necessary chest pain. The patient was given nitroglycerin 1 inch the chest wall. The patient was given potassium chloride 20 mEq by mouth 1 for mild hypokalemia noted on blood work, Protonix 40 mg IV was given 1 for possible acid reflux. The patients laboratory studies were reviewed and remarkable for a CBC that is unremarkable. CMP is remarkable for potassium of 3.3, glucose 150, alkaline phosphatase 130, CPK 233 with an MB percent of 1, troponin I less than 0.02, BNP is 10, lipase 197, PT PTT unremarkable. Radiology studies were reviewed and remarkable for a Chest x-ray shows no acute disease. The patient will be admitted to the chest pain center for rule out serial cardiac enzyme protocol and consideration of stress testing to follow. The patients results were discussed with the patient, including the plan of care. I explained that further testing and/ or monitoring is indicated based on the patients history, examination, and/ or laboratory findings. Therefore, I recommended admission for additional evaluation. The patient expressed understanding and was agreeable with this plan. The patient was admitted to the hospital in stable condition and sent to a bed under the care of the chest pain center. Diagnosis Primary Impression: Chest pain, rule out acute myocardial infarction Admitting Information Admitting Physician Requests: Arminda Johnson MD Jul 09, 2016 05:44
[2016-07-09] MEDS ORDERED: PANTOPRAZOLE SODIUM 40 MG VIAL IV PUSH ONE (05:45)
[2016-07-09] MEDS ORDERED: POTASSIUM CHLORIDE 20 MEQ CONTROLLED RELEASE TAB PO ONE (05:45)
[2016-07-09] MEDS ORDERED: SODIUM CHLOR 0.9% 1000 ML INJ 1,000 ML IV SCH (06:44)
[2016-07-09] MEDS ORDERED: ACETAMINOPHEN 500 MG CPLT PO PRN (06:45)
[2016-07-09] MEDS ORDERED: ONDANSETRON HCL 4 MG/2 ML VIAL IV PRN (06:45)
[2016-07-09 08:48] LABS: CREATINE KINASE 211 U/L (26-192)
--- NOTE | 2016-07-09 08:51 | HHI.HP ---
[facility] Primary Care Physician Severiano Dubose M.D. Chief Complaint Breast pain History of Present Illness This is a 66-year-old female that presents to ED via private vehicle stating " my breasts hurt." States it feels like pinpricks in her breasts. The symptoms began around midnight last night. They would last about 5 minutes but then would recur several more times. She states that she took some Madhavi-[place] which she believed helped a little bit but discomfort still continues to reoccur. She found nothing to worsen her discomforts however she states "the pain gets better if I mash my breasts together." States she had a normal mammogram within the last 2 months. Denies recent illness. Denies fevers or chills. She was initially little short of breath. No nausea or diaphoresis. States that she is compliant with her medications. She was diagnosed with HIV at age 25 and has been compliant with her treatment plan. She does not know the CD4 count while low but states last time she had a check she was told that it was okay. She was at this time on 2 medications but when was discontinued. Review of Systems General: Patient denies fevers, chills recent, and recent travel HEENT: Patient denies headache, sore throat, difficulty swallowing. Cardiovascular: Has the chest discomfort as mentioned above. Denies sensation of heart beating rapidly or irregularly. No syncope. Denies diaphoresis. Respiratory: Some mild shortness of breath. Denies inspirational chest discomfort. Denies coughing wheezing or hemoptysis. GI: Patient denies nausea, vomiting, diarrhea, abdominal pain, bloody stools. Musculoskeletal: Patient denies joint pain or edema. Denies calf pain or edema. Neurovascular: Patient denies numbness, tingling, weakness in extremities. Denies headache. Endocrine: Denies polyuria and polydipsia. Hematologic: Denies easy bruising. Skin: Denies rash or itching. Past Family Social History Allergies: Uncoded Allergies: geritol (Adverse Reaction, Severe, 03/24/15) pt states this vit supplement made her ill but cannot remember what "it did to her exactly" Past Medical History Hypertension, hyperlipidemia, and HIV that was diagnosed about 40 years ago. Denies diabetes and known CAD. Past Surgical History , colonoscopy, and hysterectomy. Reported Medications Reported Meds & Active Scripts Active Zofran (Ondansetron HCl) 4 Mg Tab 4 Mg PO Q6HR PRN Reported Enalapril (Enalapril Maleate) 20 Mg Tab 20 Mg PO DAILY Seroquel (Quetiapine Fumarate) 300 Mg Tab 300 Mg PO DAILY Clonidine (Clonidine HCl) 0.1 Mg Tab 0.1 Mg PO BID Bupropion HCl 100 Mg Tab 100 Mg PO HS Atorvastatin (Atorvastatin Calcium) 40 Mg Tab 40 Mg PO HS Active Ordered Medications Current Medications Medications (Trade) Dose Ordered Sig/Cristobal Route Start Time Stop Time Status Last Admin Sodium Chloride 2 ml 2 ml UNSCH PRN IVF 07/09/16 04:15 07/09/16 06:07 (NS 1000 ml Inj) 1,000 ml @ 100 mls/hr Q10H IV 07/09/16 06:44 (Tylenol) 500 mg Q4H PRN PO 07/09/16 06:45 (Zofran Inj) 4 mg Q6H PRN IV 07/09/16 06:45 (Protonix) 40 mg DAILY PO 07/09/16 09:00 (Nitroglycerin 2% Oint) 1 inch Q6HR TOP 07/09/16 12:00 Family History Her sister has a pacemaker but is not sure there is CAD in the family. Social History Patient is a lifetime nonsmoker. Has occasional beer. Denies illicit drugs. Physical Exam Vital Signs Vital Signs Date Time Temp Pulse Resp B/P Pulse Ox O2 Delivery O2 Flow Rate FiO2 07/09/16 06:07 72 14 111/80 100 Nasal Cannula 2 07/09/16 04:15 18 98 Nasal Cannula 2 07/09/16 04:15 98 Nasal Cannula 2 07/09/16 03:58 68 16 134/89 99 Room Air 07/09/16 03:27 97.7 85 16 175/97 97 Room Air Physical Exam GENERAL: This is a well-nourished, well-developed patient, in no apparent distress. Patient speaks in clear complete sentences. Patient is pleasant. HEENT: Head is atraumatic and normocephalic. Neck is supple without lymphadenopathy and trachea is midline. No JVD or carotid bruits. CARDIOVASCULAR: Regular rate and rhythm without murmurs, gallops, or rubs. RESPIRATORY: The chest wall is tender when palpating bilaterally. Breast also are tender. Clear to auscultation. Breath sounds equal bilaterally. No wheezes , rales, or rhonchi. No use of accessory muscles. GASTROINTESTINAL: Abdomen is nontender, nondistended. Abdomen soft. No obvious pulsatile mass or bruit. No CVA tenderness. Strong femoral pulses bilaterally. Normal bowel sounds in all quadrants. MUSCULOSKELETAL: Patient is moving upper and lower extremities freely. No calf tenderness or edema, no Homans sign. Strong pulses in upper and lower extremities. NEUROLOGICAL: Patient is alert and oriented. Cranial nerves 2-12 are grossly intact. No focal deficits and speech is clear. SKIN: No rash and turgor is normal. Laboratory Laboratory Tests Test 07/09/16 04:10 White Blood Count 7.2 Red Blood Count 4.47 Hemoglobin 12.5 Hematocrit 36.4 Mean Corpuscular Volume 81.3 Mean Corpuscular Hemoglobin 27.9 Mean Corpuscular Hemoglobin 34.3 Concent Red Cell Distribution Width 14.7 Platelet Count 243 Mean Platelet Volume 9.6 Neutrophils (%) (Auto) 38.0 Lymphocytes (%) (Auto) 51.8 Monocytes (%) (Auto) 6.3 Eosinophils (%) (Auto) 3.6 Basophils (%) (Auto) 0.3 Neutrophils # (Auto) 2.7 Lymphocytes # (Auto) 3.7 Monocytes # (Auto) 0.5 Eosinophils # (Auto) 0.3 Basophils # (Auto) 0.0 CBC Comment DIFF FINAL Differential Comment Prothrombin Time 10.3 Prothromb Time International 0.9 Ratio Activated Partial 24.6 Thromboplast Time Sodium Level 142 Potassium Level 3.3 Chloride Level 104 Carbon Dioxide Level 28.8 Anion Gap 9 Blood Urea Nitrogen 9 Creatinine 0.74 Estimat Glomerular Filtration 95 Rate Random Glucose 150 Calcium Level 9.0 Magnesium Level 1.7 Total Bilirubin 0.3 Aspartate Amino Transf 30 (AST/SGOT) Alanine Aminotransferase 41 (ALT/SGPT) Alkaline Phosphatase 130 Total Creatine Kinase 233 Creatine Kinase MB 2.4 Creatine Kinase MB % 1.0 Troponin I LESS THAN 0.02 B-Type Natriuretic Peptide 10 Total Protein 6.7 Albumin 3.6 Lipase 197 Result Diagram: 07/09/1640907/09/16409 Imaging Last Impressions Chest X-Ray 07/09/16402 Signed Impressions: Service Date/Time: Saturday, July 09, 2016 04:30 - CONCLUSION: No acute disease. Conor Todd MD Course Initial EKG is sinus rhythm without significant ST segment depression or elevation. Assessment and Plan Assessment and Plan * Atypical chest pain: Patient will continue to have serial cardiac enzymes and EKGs for ruling out purposes. Further treatment plan pending the evaluation by Dr. Ammon Villa of cardiology in the chest pain center. * Hypertension: Continue current medication. * Hyperlipidemia: Continue current medication. * HIV: Continue her medication. Johnny Catherine Jul 09, 2016 08:51
[2016-07-09 09:00] LABS: CKMB 2.1 NG/ML (0.5-3.6)
[2016-07-09] MEDS ORDERED: PANTOPRAZOLE SOD 40 MG DELAYED RELEASE TAB PO SCH (09:00)
[2016-07-09] MEDS ORDERED: QUEtiapine FUMARATE 300 MG TAB PO SCH (09:00)
[2016-07-09] MEDS ORDERED: NITROGLYCERIN 2% OINT 1 GM PACKET TOP SCH (12:00)
--- NOTE | 2016-07-09 13:25 | EKG ---
Date Performed: 07/09/2016 Time Performed: 03:55:23 PTAGE: 66 years EKG: Sinus rhythm ABNORMAL ECG PREVIOUS TRACING : 07/09/2016 03.43 Since previous tracing, no significant change noted DOCTOR: Ammon Villa Interpretating Date/Time 07/09/2016 13:22:53
--- NOTE | 2016-07-09 13:26 | EKG ---
Date Performed: 07/09/2016 Time Performed: 08:21:56 PTAGE: 66 years EKG: Sinus rhythm ABNORMAL ECG PREVIOUS TRACING : 07/09/2016 03.55 Since previous tracing, no significant change noted DOCTOR: Ammon Villa Interpretating Date/Time 07/09/2016 13:24:02
[2016-07-09] MEDS ORDERED: REGADENOSON INJ 0.4 MG/5 ML SYR ONE (13:34)
--- NOTE | 2016-07-09 15:10 | RADRPT ---
EXAM DATE/TIME: 07/09/2016 12:58 [facility] COMPARISON: No previous studies available for comparison. INDICATIONS : Bilateral chest pain. Angina. DOSE: 25.8 mCi Tc99m Myoview at stress. 8.1 mCi Tc99m Myoview at rest. 0.4 mg Lexiscan STRESS SYMPTOMS: Heavy feeling. EJECTION FRACTION: > 70% MEDICAL HISTORY : Hypercholesterolemia. Hypertension. Diabetes mellitus type 2. Asthma. HIV. SURGICAL HISTORY : Tubal ligation. Hysterectomy. ENCOUNTER: Initial ACUITY: 1 day PAIN SCALE: 7/10 LOCATION: Bilateral chest TECHNIQUE: The patient underwent pharmacologic stress with infusion of prescribed dose. Continuous ECG tracing was monitored during stress. Gated SPECT imaging was performed after stress and conventional SPECT i maging was performed at rest. The examination was performed on a SPECT/CT scanner, both attenuation and non-corrected datasets were reviewed. FINDINGS: DISTRIBUTION: The maximum perfused segment at stress is in the anterior lateral wall. PERFUSION STUDY: The pattern of perfusion at stress is within normal limits. GATED STUDY: There is intact wall motion and thickening without hypokinetic or dyskinetic segments. CONCLUSION: Negative for stress-induced ischemia.. RISK CATEGORY: Low (<1% Annual Mortality Rate) Eliazar Shaikh MD FACR on July 09, 2016 at 15:08 Board Certified Radiologist. This report was verified electronically.
--- NOTE | 2016-07-09 15:22 | HHI.DCPOC ---
Discharge Care Plan Diagnosis: (1) Chest pain, atypical (2) Hypertension (3) Hyperlipidemia Goals to Promote Your Health * To prevent worsening of your condition and complications * To maintain your health at the optimal level Directions to Meet Your Goals Take your medications as prescribed Follow your dietary instruction Follow activity as directed Keep your appointments as scheduled Take your immunizations and boosters as scheduled If your symptoms worsen call your PCP, if no PCP go to Urgent Care Center or Emergency Room Smoking is Dangerous to Your Health. Avoid second hand smoke Call the 24-hour hour crisis hotline for domestic abuse at Johnny Catherine Jul 09, 2016 15:22
[2016-07-09] MEDS ORDERED: buPROPion HCL 100 MG TAB PO SCH (21:00)
[2016-07-09] MEDS ORDERED: ATORVASTATIN 40 MG TAB PO SCH (21:00)
--- NOTE | 2016-07-10 14:39 | TR ---
Date Performed: 07/09/2016 Time Performed: 13:38:41 DOCTOR: Delilah Kaiser DRUG LIST: CLINICAL HISTORY: REASON FOR TEST: CHEST PAIN REASON FOR ENDING: OBSERVATION: CONCLUSION: Lexiscan stress test was performed under standard four minute protocol. Radionuclid e was injected one minute prior to ending the test. No electrocardiographic abormalities were present to suggest ischemia. Nuclear imaging and interpretation are pending. COMMENTS:
== END 2016-07-09 16:10 | disposition home or self-care (01) ==
LOC: NEPE 03:25 → NEDA 05:54 → NEPHCDU 12:53
DX: R07.89 Other chest pain (principal); I10 Essential (primary) hypertension; E78.5 Hyperlipidemia, unspecified; Z21 Asymptomatic human immunodeficiency virus [HIV] infection status; E78.00 Pure hypercholesterolemia, unspecified; J45.909 Unspecified asthma, uncomplicated; F32.9 Major depressive disorder, single episode, unspecified; K21.9 Gastro-esophageal reflux disease without esophagitis; Z88.8 Allergy status to other drugs, medicaments and biological substances
CPT/HCPCS: 71010; 78452; 80053; 82550; 82552; 83690; 83735; 83880; 84484; 85025; 85610; 85730; 93005; 93017; 99285; A9502; C9113; G0378; J2785; J7030

== ENCOUNTER 2016-09-14 00:51 | Emergency (ER) | payer MEDICARE, MEDICAID ==
[~2016-09-14] VITALS: Ht 167.6 cm; Wt 68.0 kg
[~2016-09-14 00:51] MED LIST changes: -LEVA500T PO; -METR-1 PO; -ZOFR4TAB PO
[2016-09-14 00:56] VITALS: BP 197/105; PULSE 63; RESP 16; TEMP 97.8; O2SAT 98
[2016-09-14] MEDS ORDERED: ASPIRIN 81 MG CHEW TAB PO ONE (01:15)
[2016-09-14] MEDS ORDERED: ONDANSETRON HCL 4 MG/2 ML VIAL IV PUSH ONE (01:15)
[2016-09-14] MEDS ORDERED: MORPHINE SULFATE 4 MG/ML INJ IV PUSH ONE (01:15)
[2016-09-14] MEDS ORDERED: SODIUM CHLORIDE 0.9% FLUSH 10 ML FLUSH IVF PRN (01:15)
[2016-09-14 01:28] VITALS: O2SAT 98
--- NOTE | 2016-09-14 01:43 | RADRPT ---
EXAM DATE/TIME: 09/14/2016 01:10 [facility] COMPARISON: CHEST SINGLE AP, July 09, 2016, 4:30. INDICATIONS : Pt having chest pain and shortness of breath. MEDICAL HISTORY : Hypercholesterolemia. Hypertension. Diabetes mellitus type 2. Asthma. SURGICAL HISTORY : Tubal ligation. Hysterectomy. ENCOUNTER: Initial ACUITY: 1 day PAIN SCORE: 6/10 LOCATION: Bilateral chest FINDINGS: A single view of the chest demonstrates the lungs to be symmetrically aerated without evidence of mas s, infiltrate or effusion. The cardiomediastinal contours are unremarkable. Osseous structures are intact. CONCLUSION: 1. No acute cardiopulmonary disease. Ammon Nash MD on September 14, 2016 at 1:41 Board Certified Radiologist. This report was verified electronically.
[2016-09-14 01:56] LABS: AUTOMATED NEUTROPHIL # 4.5 TH/MM3 (1.8-7.7); BASOPHIL # 0.1 TH/MM3 (0-0.2); BASOPHIL % 1.5 % (0.0-2.0); EOSINOPHIL # 0.3 TH/MM3 (0-0.4); EOSINOPHIL % 3.3 % (0.0-4.0); HEMATOCRIT 37.9 % (35.0-46.0); LYMPH % 43.2 % (9.0-44.0); LYMPHOCYTE # 4.1 TH/MM3 (1.0-4.8); MEAN CELL VOLUME 82.8 FL (80.0-100.0); MEAN CORPUSCULAR HEMOGLOBIN 28.7 PG (27.0-34.0); MEAN CORPUSCULAR HGB CONC 34.6 % (32.0-36.0); MONO % 4.5 % (0.0-8.0); NEUT % 47.5 % (16.0-70.0); PLATELET COUNT 272 TH/MM3 (150-450); RED BLOOD COUNT 4.58 MIL/MM3 (4.00-5.30); RED CELL DISTRIBUTION WIDTH 14.5 % (11.6-17.2); WHITE BLOOD COUNT 9.5 TH/MM3 (4.0-11.0)
[2016-09-14 01:59] LABS: HEMO FLAGS AUTO DIFF
--- NOTE | 2016-09-14 02:06 | PD ---
HPI . Chest pain Chief Complaint: Chest Pain Time Seen by Provider: 01:13 Travel History International Travel<30 days: No Contact w/Intl Traveler<30days: No Traveled to known affect area: No History of Present Illness HPI Patient presents complaining with chest and upper back pain. She describes it as sharp. Onset was 7:00 this morning. Pain is exacerbated by movement. Pain is unrelieved by Madhavi-Mendon. Pain was initially rated as 10/10. She has no associated symptoms. PFSH Past Medical History Hx Anticoagulant Therapy: No Asthma: Yes Autoimmune Disease: Yes (HIV) Blood Disorders: No Depression: Yes Heart Rhythm Problems: No Cancer: Yes Cardiovascular Problems: Yes (HTN) High Cholesterol: Yes Chemotherapy: No Chest Pain: No Congestive Heart Failure: No Cerebrovascular Accident: No Diabetes: Yes (TYPE 2) Patient Takes Glucophage: No Diminished Hearing: No Endocrine: No Gastrointestinal Disorders: Yes (GERD) Genitourinary: No Headaches: Yes Hiatal Hernia: No Heparin Induced Thrombocytopen: No Hypertension: Yes Immune Disorder: Yes (HIV) Musculoskeletal: No Neurologic: Yes Psychiatric: Yes Reproductive: No Respiratory: No Immunizations Current: Yes Radiation Therapy: No Sickle Cell Disease: No Thyroid Disease: No Menopausal: Yes Tubal Ligation: Yes Past Surgical History Abdominal Surgery: No AICD: No Arteriovenous Shunt: No Cardiac Surgery: No Section: Yes Ear Surgery: No Endocrine Surgery: No Eye Surgery: No Genitourinary Surgery: No Gynecologic Surgery: Yes () Hysterectomy: Yes Joint Replacement: No Oral Surgery: No Pacemaker: No Thoracic Surgery: No Other Surgery: Yes Social History Alcohol Use: Yes (OCCASSIONALLY) Tobacco Use: No Substance Use: No Allergies-Medications (Allergen,Severity, Reaction): Uncoded Allergies: geritol (Adverse Reaction, Severe, 03/24/15) pt states this vit supplement made her ill but cannot remember what "it did to her exactly" Reported Meds & Prescriptions Reported Meds & Active Scripts Active Reported Enalapril (Enalapril Maleate) 20 Mg Tab 20 Mg PO DAILY Seroquel (Quetiapine Fumarate) 300 Mg Tab 300 Mg PO DAILY Clonidine (Clonidine HCl) 0.1 Mg Tab 0.1 Mg PO BID Bupropion HCl 100 Mg Tab 100 Mg PO HS Atorvastatin (Atorvastatin Calcium) 40 Mg Tab 40 Mg PO HS Review of Systems Except as stated in HPI: all other systems reviewed are Neg General / Constitutional: No: Fever, Chills Cardiovascular: Positive: Chest Pain or Discomfort Respiratory: No: Shortness of Breath Gastrointestinal: No: Nausea, Vomiting Musculoskeletal: Positive: Pain (pain in the left shoulder blade) Physical Exam Narrative GENERAL: Awake and alert and in no acute distress. SKIN: Warm and dry. HEAD: Atraumatic. Normocephalic. EYES: Pupils equal and round. Extraocular movements are intact. ENT: No nasal bleeding or discharge. Mucous membranes pink and moist. NECK: Trachea midline. Neck is supple. CARDIOVASCULAR: Regular rate and rhythm. Heart sounds are normal. RESPIRATORY: No accessory muscle use. Lungs are clear with full air movement throughout. She has left chest wall tenderness GASTROINTESTINAL: Abdomen soft, non-tender, nondistended. MUSCULOSKELETAL: No obvious deformities. No edema. Left upper back tenderness between the left scapula and the thoracic spine. NEUROLOGICAL: Awake and alert. No obvious cranial nerve deficits. Motor grossly within normal limits. Normal speech. PSYCHIATRIC: Appropriate mood and affect; insight and judgment normal. Data Data Last Documented VS Vital Signs Date Time Temp Pulse Resp B/P Pulse Ox O2 Delivery O2 Flow Rate FiO2 09/14/16 01:28 98 Room Air 09/14/16 01:04 78 09/14/16 00:56 97.8 16 197/105 Orders Basic Metabolic Panel (Bmp) (09/14/16 01:13) Ckmb (Isoenzyme) Profile (09/14/16 01:13) Complete Blood Count With Diff (09/14/16 01:13) Magnesium (Mg) (09/14/16 01:13) Prothrombin Time / Inr (Pt) (09/14/16 01:13) Act Partial Throm Time (Ptt) (09/14/16 01:13) Troponin I (09/14/16 01:13) Chest, Single Ap (09/14/16 01:13) Ecg Monitoring (09/14/16 01:13) Iv Access Insert/Monitor (09/14/16 01:13) Oximetry (09/14/16 01:13) Aspirin Chew (Aspirin Chew) (09/14/16 01:15) Morphine Inj (Morphine Inj) (09/14/16 01:15) Sodium Chloride 0.9% Flush (Ns Flush) (09/14/16 01:15) Ondansetron Inj (Zofran Inj) (09/14/16 01:15) Electrocardiogram (09/14/16 ) CKMB (09/14/16 01:20) CKMB% (09/14/16 01:20) Labs Laboratory Tests Test 09/14/16 01:20 White Blood Count 9.5 TH/MM3 Red Blood Count 4.58 MIL/MM3 Hemoglobin 13.1 GM/DL Hematocrit 37.9 % Mean Corpuscular Volume 82.8 FL Mean Corpuscular Hemoglobin 28.7 PG Mean Corpuscular Hemoglobin 34.6 % Concent Red Cell Distribution Width 14.5 % Platelet Count 272 TH/MM3 Mean Platelet Volume 10.4 FL Neutrophils (%) (Auto) 47.5 % Lymphocytes (%) (Auto) 43.2 % Monocytes (%) (Auto) 4.5 % Eosinophils (%) (Auto) 3.3 % Basophils (%) (Auto) 1.5 % Neutrophils # (Auto) 4.5 TH/MM3 Lymphocytes # (Auto) 4.1 TH/MM3 Monocytes # (Auto) 0.4 TH/MM3 Eosinophils # (Auto) 0.3 TH/MM3 Basophils # (Auto) 0.1 TH/MM3 CBC Comment AUTO DIFF Differential Comment AUTO DIFF CONFIRMED Platelet Estimate NORMAL Platelet Morphology Comment NORMAL Red Cell Morphology Comment NORMAL Prothrombin Time 9.9 SEC Prothromb Time International 0.9 RATIO Ratio Activated Partial 27.0 SEC Thromboplast Time Sodium Level 143 MEQ/L Potassium Level 3.3 MEQ/L Chloride Level 105 MEQ/L Carbon Dioxide Level 29.3 MEQ/L Anion Gap 9 MEQ/L Blood Urea Nitrogen 6 MG/DL Creatinine 0.98 MG/DL Estimat Glomerular Filtration 69 ML/MIN Rate Random Glucose 97 MG/DL Calcium Level 8.9 MG/DL Magnesium Level 1.9 MG/DL Total Creatine Kinase 264 U/L Creatine Kinase MB 2.0 NG/ML Creatine Kinase MB % 0.8 % Troponin I LESS THAN 0.02 NG/ML MDM Medical Decision Making Medical Screen Exam Complete: Yes Emergency Medical Condition: Yes Interpretation(s) EKG shows a normal sinus rhythm with no acute ischemic change. Differential Diagnosis Differential diagnosis of chest pain includes but is not limited to musculoskeletal pain, pulmonary embolism, acute coronary syndrome, pneumonia, pleurisy Narrative Course Patient presents complaining with chest and back pain. The pain seems to be musculoskeletal. Last Impressions Chest X-Ray 09/14/16 0113 Signed Impressions: Service Date/Time: Wednesday, September 14, 2016 01:10 - CONCLUSION: 1. No acute cardiopulmonary disease. Ammon Nash MD CBC & BMP Diagram 09/14/16 01:20 Cardiac enzymes are negative. This patient clearly has musculoskeletal pain. She will be discharged. Diagnosis Primary Impression: Chest pain, atypical Patient Instructions: Chest Wall Pain (ED), General Instructions Med/Other Pt SpecificInfo: Prescription(s) given Scripts Tramadol 50 Mg Tab50 Mg PO Q4H PRN (PAIN) #12 TAB Ref 0 Prov:Kalina Corbin MD 09/14/16 Ibuprofen 800 Mg [id number] Mg PO Q8H PRN (Pain/Inflammation) #60 TAB Ref 0 Prov:Kalina Corbin MD 09/14/16 Disposition: 01 DISCHARGE HOME Condition: Stable Kalina Corbin MD Sep 14, 2016 02:06
[2016-09-14 02:08] LABS: INTERNATIONAL NORMALIZED RATIO 0.9 RATIO; PROTHROMBIN TIME - PATIENT 9.9 SEC (9.8-11.6)
[2016-09-14 02:34] LABS: ANION GAP 9 MEQ/L (5-15); BICARBONATE 29.3 MEQ/L (21.0-32.0); BLOOD UREA NITROGEN 6 MG/DL (7-18); CHLORIDE 105 MEQ/L (98-107); GLOMERULAR FILTRATION RATE 69 ML/MIN (>89); MAGNESIUM 1.9 MG/DL (1.5-2.5); POTASSIUM 3.3 MEQ/L (3.5-5.1); SODIUM (NA) 143 MEQ/L (136-145)
[2016-09-14 02:37] LABS: CREATINE KINASE 264 U/L (26-192)
[2016-09-14 02:41] LABS: PLATELET ESTIMATE SMEAR NORMAL (NORMAL); PLATELET MORPHOLOGY NORMAL (NORMAL); SCAN/DIFF AUTO DIFF CONFIRMED
[2016-09-14] MEDS ORDERED: IBUP800T23 PO (03:10)
[2016-09-14] MEDS ORDERED: TRAM50TA PO (03:10)
[2016-09-14] MEDS ORDERED: PROCHLORPERAZINE INJ 10 MG/2 ML VIAL IV PUSH ONE (03:15)
[2016-09-14] MEDS ORDERED: diphenhydrAMINE HCL 50 MG/ML VIAL IV PUSH ONE (03:15)
[2016-09-14 03:56] VITALS: BP 169/90; PULSE 61; RESP 16; O2SAT 98
--- NOTE | 2016-09-14 12:17 | EKG ---
Date Performed: 09/14/2016 Time Performed: 01:07:28 PTAGE: 66 years EKG: SINUS BRADYCARDIA SEPTAL MYOCARDIAL INFARCTION ABNORMAL ECG Compared to prior tracing no si gnificant change PREVIOUS TRACING : 07/09/2016 08.21 DOCTOR: Anthony Dailey Interpretating Date/Time 09/14/2016 12:16:57
== END 2016-09-14 03:54 | disposition home or self-care (01) ==
LOC: NEPE 00:51
DX: R07.89 Other chest pain (principal); I10 Essential (primary) hypertension; R94.31 Abnormal electrocardiogram [ECG] [EKG]
CPT/HCPCS: 71010; 80048; 82550; 82552; 83735; 84484; 85025; 85610; 85730; 93005; 96374; 96375; 99285; J0780; J1200; J2270; J2405